=== PATIENT | female | born 1945 ===

== ENCOUNTER 2017-06-20 17:43 | Emergency (ER) | payer MEDICARE, OTHER ==
[2017-06-20 17:54] VITALS: BP 133/79; PULSE 85; RESP 16; TEMP 98.7; O2SAT 100
--- NOTE | 2017-06-20 18:19 | ED PDOC ---
Arrival/HPI - General Chief Complaint: Anxiety Time Seen by Provider: 06/20/17 17:58 Historian: Patient - History of Present Illness Narrative History of Present Illness (Text): 06/20/17 18:15 This 71 yo female presents to this ED requestinf medication refill. Patient stated she recently came from [place], and she has not been able to refill her medication. She brought a bottle of Xanax 2 mg tab daily, and Desipramine 50 mg tab TID. Patient denies other complains. Denies SI, HI, or hallucination. Time/Duration: Other (see hpi) Context: Home Past Medical History - Provider Review Nursing Documentation Reviewed: Yes - Infectious Disease Hx of Infectious Diseases: None - Reproductive Menopause: Yes - Cardiac Hx Hypertension: Yes - Endocrine/Metabolic Hx Diabetes Mellitus Type 2: Yes - Psychiatric Hx Substance Use: No - Anesthesia Hx Anesthesia: No Family/Social History - Physician Review Nursing Documentation Reviewed: Yes Family/Social History: Other (noncontributory) Smoking Status: Unknown If Ever Smoked Hx Alcohol Use: No Hx Substance Use: No Allergies/Home Meds Allergies/Adverse Reactions: Allergies No Known Allergies Allergy (Verified 06/20/17 17:54) Home Medications: Home Meds Medication Instructions Recorded Confirmed ALPRAZolam [Xanax] 2 mg PO TID 06/20/17 06/20/17 Desipramine HCl [Norpramin] 50 mg PO TID 06/20/17 06/20/17 Review of Systems - Review of Systems Constitutional: Normal. absent: Fatigue, Weight Change, Fevers, Night Sweats Eyes: Normal ENT: Normal Respiratory: Normal. absent: SOB, Cough Cardiovascular: Normal. absent: Chest Pain, Palpitations Gastrointestinal: Normal. absent: Abdominal Pain, Nausea, Vomiting Genitourinary Female: Normal Musculoskeletal: Normal. absent: Back Pain Skin: Normal Neurological: Normal. absent: Headache, Dizziness Endocrine: Normal Hemo/Lymphatic: Normal Psychiatric: Anxiety. absent: Depression, Suicidal Ideation Physical Exam Vital Signs Temp Pulse Resp BP Pulse Ox 06/20/17 17:50 98.7 F 85 16 133/79 100 Temperature: Afebrile Blood Pressure: Normal Pulse: Regular Respiratory Rate: Normal Appearance: Positive for: Well-Appearing, Non-Toxic, Comfortable Pain Distress: None Mental Status: Positive for: Alert and Oriented X 3 - Systems Exam Head: Present: Atraumatic, Normocephalic Pupils: Present: PERRL Extroacular Muscles: Present: EOMI Conjunctiva: Present: Normal Mouth: Present: Moist Mucous Membranes Neck: Present: Normal Range of Motion Upper Extremity: Present: Normal Inspection, Normal ROM Lower Extremity: Present: Normal Inspection, Normal ROM Neurological: Present: GCS=15, CN II-XII Intact, Speech Normal, Motor Func Grossly Intact, Normal Sensory Function, Normal Cerebellar Funct, Gait Normal Skin: Present: Warm, Dry, Normal Color. No: Rashes Psychiatric: Present: Alert, Oriented x 3, Normal Insight, Normal Concentration , Anxious (very mild anxious). No: Depressed Mood, Suicidal Ideation, Homicidal Ideation, Delusional, Hallucinations Medical Decision Making ED Course and Treatment: 06/20/17 18:20 Patient came for medication refill. Patient stated feeling mild anxious. She denies SI, or HI. She wishes to get prescription and d/c home. Mental health clinic information will be given to pt. Re-evaluation Time: 18:22 Reassessment Condition: Re-examined, Improved Disposition/Present on Arrival - Present on Arrival Any Indicators Present on Arrival: No History of DVT/PE: No History of Uncontrolled Diabetes: No Urinary Catheter: No History of Decub. Ulcer: No History Surgical Site Infection Following: None - Disposition Have Diagnosis and Disposition been Completed?: Yes Diagnosis: Medication refill, Feeling anxious Disposition: HOME/ ROUTINE Disposition Time: 18:23 Patient Plan: Discharge Condition: GOOD Discharge Instructions (ExitCare): Medicine Refill (ED) Additional Instructions: Call Mental Health clinic for revaluation. Return to emergency if symptoms worsen. Take medication as instructed. Prescriptions: ALPRAZolam [Xanax] 1 mg PO DAILY PRN #5 tab PRN Reason: Anxiety Desipramine HCl [Norpramin] 50 mg PO TID #15 tab Referrals: [facility] [Outside] - Follow up with primary [facility] [Outside] - Follow up with primary [facility] [Outside] - Follow up with primary
== END 2017-06-20 18:50 | disposition home or self-care (01) ==
LOC: ED 17:43
DX: Z76.0 Encounter for issue of repeat prescription (principal); I10 Essential (primary) hypertension; E11.9 Type 2 diabetes mellitus without complications